=== PATIENT | male | born 1950 | race Caucasian/White ===

== ENCOUNTER → 2016-12-24 | Outpatient (CLI) | payer OTHER, MEDICARE ==
[2016-12-24 11:28] LABS: HEMOGLOBIN A1C 8.29 % (4.2-6.0); MEAN BLOOD GLUCOSE (CALC) 190.057 mg/dL
[2016-12-24 11:59] LABS: ASPARTATE AMINO TRANSFERASE 28 IU/L (21-57); BILIRUBIN,TOTAL 1.2 mg/dL (0.3-1.2); BLOOD UREA NITROGEN 30 mg/dL (7-22); CALCIUM 9.1 mg/dL (8.7-10.7); CHLORIDE 100 meq/L (98-112); CREATININE 1.2 mg/dL (0.70-1.50); EST GLOMERULAR FILTRATION > 60 (>60 ml/min/1.73m(2)); GLUCOSE 145 mg/dL (78-110); POTASSIUM 4.2 meq/L (3.8-5.2); SODIUM 135 meq/L (135-145)
== END ==
LOC: LAB 10:58
PROVIDERS: ATTEND Family Medicine
DX: E11.9 Type 2 diabetes mellitus without complications (principal)
CPT/HCPCS: 36415; 80053; 83036

== ENCOUNTER 2018-05-08 21:40 | Observation (INO) ==
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
[2018-05-08] MEDS ORDERED: KETOROLAC 15 MG/1 ML VIAL IVP ONE ×2 (22:08→22:13)
[2018-05-08] MEDS ORDERED: HYDROmorphone 2 MG/1 ML IVP ONE ×2 (22:08→22:13)
[2018-05-08] MEDS ORDERED: Sodium Chloride 0.9% 1,000 ML PRIMARY IV ONE ×2 (22:08→22:13)
[2018-05-08] MEDS ORDERED: LORazepam 2 MG/1 ML VIAL IVP ONE (22:13)
[2018-05-08 22:27] LABS: BASOPHILS # (AUTO) 0.05 10*3/UL; BASOPHILS % (AUTO) 0.8 % (0-1); EOSINOPHILS # (AUTO) 0.18 10*3/UL; Hemoglobin [HGB] 15.7 g/dL (14.0-18.0); LYMPHOCYTES # (AUTO) 1.83 10*3/uL; MEAN CORPUSCULAR HEMOGLOBIN 28.2 PG (27-31); MEAN CORPUSCULAR HGB CONC 33.4 g/dL (33-37); MEAN CORPUSCULAR VOLUME 84.5 FL (80-90); MEAN PLATELET VOLUME 10.6 FL (7.4-12.2); MONOCYTES # (AUTO) 0.61 10*3/UL (0.3-0.8); MONOCYTES % (AUTO) 10.3 % (5-15); NEUTROPHILS # (AUTO) 3.24 10*3/UL; NEUTROPHILS % (AUTO) 54.9 % (50-80); RED BLOOD COUNT 5.56 10^6/uL (4.70-6.10)
[2018-05-08 22:29] LABS: PLATELET MORPHOLOGY COMMENT NORMAL MORPHOLOGY (NORM); RBC MORPHOLOGY COMMENT NORMAL MORPHOLOGY (NORM); WBC MORPHOLOGY COMMENT NORMAL MORPHOLOGY (NORM)
[2018-05-08 22:38] LABS: BUN/CREATININE RATIO 22.14 (6-20); SERUM ALBUMIN 4.4 g/dL (3.5-4.8)
[2018-05-08] MEDS ORDERED: Glucagon Inj Vial 1 MG/ML VIAL IM PRN (23:44)
[2018-05-08] MEDS ORDERED: DEXTROSE 50%-WATER SYRINGE 50 ML SYRINGE IVP PRN (23:44)
[2018-05-08] MEDS ORDERED: HYDROmorphone 2 MG/1 ML IVP PRN (23:44)
[2018-05-08] MEDS ORDERED: Ondansetron ODT Tab 4 MG TAB PO PRN (23:44)
[2018-05-08] MEDS ORDERED: ONDANSETRON 4 MG/2 ML VIAL IVP PRN (23:44)
[2018-05-08] MEDS ORDERED: LIDOCAINE W/ SODIUM BICARB 0.5 ML SYR SUBD PRN (23:44)
[2018-05-08] MEDS ORDERED: Insulin Sliding Scale Protocol SUBCUT PRN (23:44)
[2018-05-08] MEDS ORDERED: ACETAMINOPHEN 325 MG TABLET PO PRN (23:44)
[2018-05-08] MEDS ORDERED: DEXTROSE 31 GM GEL PO PRN (23:44)
[2018-05-08] MEDS ORDERED: CALCIUM CARBONATE 500 MG (TUMS) CHEWABLE TABLET PO PRN (23:44)
[2018-05-08] MEDS ORDERED: DOCUSATE 100 MG CAPSULE PO PRN (23:44)
[2018-05-09] MEDS: ASPIRIN 81 MG (BABY) CHEWABLE TABLET PO SCH ×2 (00:10→09:34)
[2018-05-09] MEDS: BENAZEPRIL 10 MG TABLET PO SCH ×2 (00:10→09:34)
[2018-05-09] MEDS: CHOLECALCIFEROL 1000 IU TABLET PO SCH ×2 (00:11→09:35)
[2018-05-09] MEDS: HYDROCHLOROTHIAZIDE 25 MG TABLET PO SCH ×2 (00:12→09:34)
[2018-05-09] MEDS: Sodium Chloride 0.9% 1,000 ML PRIMARY IV SCH ×2 (00:19→11:19)
[2018-05-09] MEDS ORDERED: Prochlorperazine Edisylate Inj 10mg/2ml vial IVP PRN (02:38)
[2018-05-09 05:28] LABS: BASOPHILS # (AUTO) 0.02 10*3/UL; BASOPHILS % (AUTO) 0.3 % (0-1); EOSINOPHILS # (AUTO) 0.04 10*3/UL; EOSINOPHILS % (AUTO) 0.7 % (0-8); Hematocrit [HCT] 43.5 % (42.0-52.0); Hemoglobin [HGB] 14.4 g/dL (14.0-18.0); LYMPHOCYTES # (AUTO) 0.74 10*3/uL; MEAN CORPUSCULAR HEMOGLOBIN 28.3 PG (27-31); MEAN CORPUSCULAR HGB CONC 33.1 g/dL (33-37); MEAN CORPUSCULAR VOLUME 85.5 FL (80-90); MONOCYTES % (AUTO) 3.4 % (5-15); NEUTROPHILS # (AUTO) 4.94 10*3/UL; RED BLOOD COUNT 5.09 10^6/uL (4.70-6.10)
[2018-05-09 05:52] LABS: BLOOD UREA NITROGEN 32 mg/dL (7-22); BUN/CREATININE RATIO 26.66 (6-20); SERUM ALBUMIN 3.7 g/dL (3.5-4.8)
[2018-05-09 06:19] LABS: PLATELET MORPHOLOGY COMMENT NORMAL MORPHOLOGY (NORM); RBC MORPHOLOGY COMMENT NORMAL MORPHOLOGY (NORM); WBC MORPHOLOGY COMMENT NORMAL MORPHOLOGY (NORM)
[2018-05-09 06:55] VITALS: RESP 17
[2018-05-09] MEDS ORDERED: metFORMIN 500 MG TABLET PO SCH (07:00)
[2018-05-09] MEDS ORDERED: OMEPRAZOLE 20 MG CAPSULE PO SCH (07:00)
[2018-05-09] MEDS: Insulin Lispro Flexpen 300 UNIT/3 ML INSULN.PEN SUBCUT SCH ×2 (07:13→11:37)
--- NOTE | 2018-05-09 07:49 | PDOC ---
HPI - History of Present Illness Date of Service: 05/09/18 Time of Service: 07:30 Chief Complaint: Worsening lower back pain History of Present Illness: This is a 67 years old male with medical history significant for history of hypertension, diabetes and hyperlipidemia who presented to the hospital last night because of worsening pain in the back in addition to rubbery feeling in his legs. Patient said that he had history of pain in his back that happened after a fall back in October and he is been seeing by his primary and neurosurgery in [place]. Yesterday he went to the neurosurgery office and had 2 injections in his back and they were local anesthetic to see the effect of the medication before planning more intervention. He Said he was discharged and started to have trouble with walking, and feeling of the legs being rubbery which he couldn 't describe more, in addition he had worsening back pain and he went back to the office of the neurosurgeon Dr. Kwong he was given Dilaudid and Toradol apparently felt better and discharged home. He continued to have pain and decided to come to the ER. Last night he said he did have headache now it is mostly gone there is no fever and no chills. No nausea prior to the pain medication that was giving in the ER. Was given pain medication and was admitted. He is somewhat better the headache is nearly gone, the pain in the back still there may be 5 out of 10. He is Still somewhat unsteady according to him but he is also complaining from nausea. There is no numbness or loss of control of bowel or bladder. Past Medical History Medical History: 1. Hypertension. 2. Hyperlipidemia. 3. Diabetes. 4. History of arthritis. 5. History of back pain after a fall back in October Surgical History: 1. History of cervical spine fusion before. 2. History of total right shoulder replacement. 3. History of tonsillectomy Family History: Reviewed an Not Pertinent Past Social History: Does not smoke, does not drink and no drugs. Lives with his outside of [place]. Tobacco Use: Never Smoker In the Past 12 Months, Have Used or Abuse Any of the Following Substance: None Alcohol Use: None Medication / Allergies Home Medications: Home Medications 3 Medication Instructions Recorded Confirmed Type Aspirin [Baby Aspirin] 81 mg ORAL QD tab 05/07/11 05/08/18 History Cholecalciferol [Vitamin D] 1,000 unit PO QD #90 cap 02/21/13 05/08/18 History Blood Sugar Diagnostic [Freestyle 1 ea MC BID and PRN #1 box 05/23/13 05/08/18 History Insulinx Test Strips] Multivitamin [Multi-Vitamin Daily] 1 ea PO QD tab 05/28/16 05/08/18 History RX: Metformin HCl 2 tab PO BID #180 tab 03/24/17 05/08/18 Rx benazepril 40 mg tablet 40 mg ORAL QD #90 tab 09/09/17 05/08/18 Rx hydrochlorothiazide 25 mg tablet 25 mg ORAL QD #90 tab 09/26/17 05/08/18 Rx Linagliptin [Tradjenta] 5 mg PO DAILY 11/04/17 05/08/18 History RX: Empagliflozin [Jardiance] 10 mg PO QD #30 tab 11/16/17 05/08/18 Rx RX: Omeprazole 20 mg PO DAILY 01/17/18 05/08/18 History pravastatin 80 mg tablet 80 mg PO DAILY #90 tab 02/10/18 05/08/18 Rx diclofenac 1 % topical gel 4 g TOPICAL QID #100 g 04/03/18 05/08/18 Rx Allergies/Adverse Reactions: Allergies 3 Allergy/AdvReac Type Severity Reaction Status Date / Time Penicillins Allergy Intermediate HIVES Verified 05/08/18 21:49 saxagliptin HCl AdvReac Mild Nauseated Verified 05/08/18 21:49 [From Onglyza] Review of Systems - Review of Systems All Systems: Reviewed & No Additional Complaints Except as Stated Exam - Vitals Vital Signs: Vital Signs Temperature 97.6 F Temperature Source Temporal Artery Scan Pulse Rate [Pulse Oximeter] 88 Pulse Rate 64 Respiratory Rate 17 Blood Pressure [Left Arm] 130/69 Blood Pressure 140/83 Pulse Ox 97 Oxygen Flow Rate 2 Oxygen Delivery Method Nasal Cannula Height 5 ft 11 in Weight 205 lb - General General Appearance: No Acute Distress, Cooperative, Obese - Head Head Exam: Normal Inspection, Atraumatic - Eye Eye Exam: POSITIVE: Normal Appearance - ENT ENT Exam: POSITIVE: Normal Exam - Neck Neck Exam: Normal Inspection - Respiratory Respiratory Exam: POSITIVE: Clear to Auscultation - Bilaterally - Cardiovascular Cardiovascular Exam: POSITIVE: RRR - GI/Abdominal GI/Abdominal Exam: POSITIVE: Normal Bowel Sounds, Non Tender, Non Distended, Soft, No Organomegaly - Rectal Rectal Exam: POSITIVE: Deferred - External Exam: POSITIVE: Deferred Exam: POSITIVE: Deferred - Extremities Extremities Exam: POSITIVE: Normal Inspection - Back Back Exam: POSITIVE: Normal Inspection Additional Back Exam Details: 2 Band-Aids on the sides of the spine noted. There is no redness there is minimal tenderness on the left paraspinal area. - Neurological Neurological Exam: POSITIVE: Alert, Oriented x 3, Reflexes Normal, CN II-XII Intact, No Facial Droop, Speech Intact / Clear Additional Neurological Exam Details: On his neurological exam there is slight weakness on raising the leg left leg compared to the right one. He said though his left leg always been weaker. Reflexes are symmetrical. Sensation seems to be intact. Babinski is negative. Pulses adequate on both side and symmetrical. - Psychiatric Psychiatric Exam: POSITIVE: Normal Affect - Integumentary Integumentary Exam: POSITIVE: Normal Color Results - Labs CBC and BMP: 05/09/18 04:16 05/09/18 04:16 Assessment and Plan - Patient Problems (1) Low back pain Current Visit: Yes Status: Acute Comment: There is worsening of his back pain after the injection. I did speak with Dr. Kwong, will do an MRI of his back and will send the MRI to [place] for him to review it. I think will write for oral pain medication and will ask PT also to work with him. Code(s): M54.5 - Low back pain (2) Dyslipidemia Current Visit: No Status: Acute Onset Date: 12/07/12 Comment: Continue previous medications Code(s): E78.5 - Hyperlipidemia, unspecified (3) Benign hypertension Current Visit: No Status: None Comment: Same medications (4) DM2 (diabetes mellitus, type 2) Current Visit: No Status: Acute Onset Date: 05/11/11 Comment: Continue home Medication continue sliding scale. Code(s): E11.9 - Type 2 diabetes mellitus without complications Qualifiers: Diabetes mellitus terminal superintendent insulin use: without terminal superintendent use Diabetes mellitus complication status: without complication Qualified Code(s): E11.9 - Type 2 diabetes mellitus without complications
[2018-05-09] MEDS ORDERED: oxyCODONE-ACETAMINOPHEN 5-325 TAB PO PRN (07:50)
[2018-05-09] MEDS ORDERED: Naproxen Tab 500 MG TAB PO PRN (07:51)
[2018-05-09] MEDS ORDERED: Pravastatin 80mg Tab PO SCH (09:00)
[2018-05-09] MEDS ORDERED: LINAGLIPTIN 5 MG PO SCH (09:00)
[2018-05-09] MEDS ORDERED: EMPAGLIFLOZIN 10 MG PO SCH (09:00)
[2018-05-09] MEDS: DICLOFENAC SODIUM 4 GM TOPICAL SCH ×2 (10:40→13:32)
[2018-05-09 11:05] VITALS: O2SAT 94
[2018-05-09 11:06] VITALS: BP 126/70; TEMP 97.1
--- NOTE | 2018-05-09 16:05 | PTI REPORT ---
Thank you for the referral of Jakob Sharif. He was seen on 05/09/18 for an inpatient evaluation secondary to back pain. SUBJECTIVE: The patient is a 67-year-old male. The patient initially denied treatment; however, he agreed to a therapy evaluation. The patient states he had a diagnostic injection yesterday in [place] for his back pain that has been persistent since he fell in October. An MRI was done after his fall and showed two bulging discs. The patient was hoping to have surgery; however, his physician suggested for him to go to an business analytics specialist in [facility]. The patient went yesterday, 05/08/2018 to have injections. The patient states that there was a sharp pain all the way down his bilateral legs that he felt into his toes and the pain was greater on the left vs. the right. The patient complains of diminished sensation on the left and inability to ambulate correctly due to weakness. The patient was independent with all transfers, ambulation, and stairs prior to injection. The patient's pain has increased after injections in his lower back. The patient states he has three stairs into his home with no railing. His bedroom is on the first floor. Prior to yesterday the patient did not use an assistive device. The patient lives with in [place] and his daughter lives near. PAST MEDICAL HISTORY: Past medical history can be found in the patient's medical record. OBJECTIVE FINDINGS: General observations: The patient was alert and oriented. Transfers: The patient transferred from sit to stand with min assist x1. Strength: The patient demonstrated strength of 3/5 in right lower extremity. The patient demonstrated strength of 2/5 in the left lower extremity. Ambulation: Gait pattern showed limited hip flexion and knee flexion during swing phase. The patient ambulated 20 steps with min assist x1. ASSESSMENT: Problem List: Decreased strength Decreased endurance Short-Term Goals: To be met by discharge from inpatient: Patient will demonstrate strength required for functional activity including transfers, ambulation, and stairs. Patient will demonstrate safe and independent transfers, ambulation, and stairs with front wheeled walker. Long-Term Goals: To be met following discharge from inpatient: Patient will be seen by outpatient physical therapy. TREATMENT PLAN: Patient will be seen B.I.D during the week and one time per day over the weekend as an inpatient for strength training, neuromuscular rehabilitation, and gait training. INITIAL TREATMENT: Treatment today consisted of the initial evaluation followed by no treatment due to the patient's refusal. The patient was left in chair with bed alarm on and call light within reach. Dictated by: CHICO Tobin Supervised by: JEFF Yip
--- NOTE | 2018-05-09 17:08 | DCSUMMARY ---
Hospitalization Summary Admit Date: 05/08/2018 Discharge Date: 05/09/18 Hospital Course: Discharge diagnoses 1. Worsening back pain after epidural improved 2. Hypertension 3. Hyperlipidemia 4. History of back pain since a fall back in October last year 5. History of arthritis Hospital course This is a 67 years old male with medical history significant for history of hypertension, diabetes and hyperlipidemia who presented to the hospital last night because of worsening pain in the back in addition to rubbery feeling in his legs. Patient said that he had history of pain in his back that happened after a fall back in October and he's been seen by his primary and neurosurgeon in [place]. The day before admission he went to the neurosurgery office and had 2 injections in his back they were local anesthetic to see the effect of the medication before planning more intervention. He said he was discharged home and then he started to have trouble walking, feeling of legs being rubbery which he couldn't describe more than that. In addition he had worsening back pain so he went back to the office of the neurosurgeon he was giving Dilaudid and Toradol apparently felt better and was discharged home. He continued to have pain so he came to the ER. The night of admission he did report headache but there was no fever nor chills. He did not have nausea prior to pain medication but did have some nausea after he was given pain medication in the ER. I saw him the next day his headache is mostly gone the pain in the back still there was rated at 5 out of 10. He did have some unsteadiness initially. His exam was remarkable for some weakness in his left leg more in the flexor of the hip but he said that's old. Did discuss it with the neurosurgeon and we decided to do an MRI. However the MRI machine broke and its not clear when they be able to fix it. I rechecked on the patient again apparently he was getting up and going to the bathroom on his own he did walk in front of me and did okay, he did not need help or a walker. He said his pain seems to be controlled the nausea that he had is gone. He feels a lot better he wanted to go home. So we discharge him home did write a prescription for pain medication in case his pain is worse and cannot be controlled with [id number] medication. He'll follow-up with his physician. He'll come tomorrow to have the MRI done. Discharge instruction Diet regular Activity as started Medications Current Medication(s) 3 Medication Instructions Recorded Confirmed Type Aspirin [Baby Aspirin] 81 mg ORAL QD tab 05/07/11 05/08/18 History Cholecalciferol [Vitamin D] 1,000 unit PO QD #90 cap 02/21/13 05/08/18 History Blood Sugar Diagnostic [Freestyle 1 ea MC BID and PRN #1 box 05/23/13 05/08/18 History Insulinx Test Strips] Multivitamin [Multi-Vitamin Daily] 1 ea PO QD tab 05/28/16 05/08/18 History Metformin HCl 2 tab PO BID #180 tab 03/24/17 05/08/18 Rx benazepril 40 mg tablet 40 mg ORAL QD #90 tab 09/09/17 05/08/18 Rx hydrochlorothiazide 25 mg tablet 25 mg ORAL QD #90 tab 09/26/17 05/08/18 Rx Linagliptin [Tradjenta] 5 mg PO DAILY 11/04/17 05/08/18 History Empagliflozin [Jardiance] 10 mg PO QD #30 tab 11/16/17 05/08/18 Rx Omeprazole 20 mg PO DAILY 01/17/18 05/08/18 History pravastatin 80 mg tablet 80 mg PO DAILY #90 tab 02/10/18 05/08/18 Rx diclofenac 1 % topical gel 4 g TOPICAL QID #100 g 04/03/18 05/08/18 Rx Naproxen [Naprosyn] 500 mg PO BID PRN tab 05/09/18 Rx Ondansetron Odt [Zofran ODT] 4 mg PO TID PRN #15 tab.rapdis 05/09/18 Rx oxyCODONE/APAP 5/325 Tab 1 - 2 tab PO QID PRN #15 tab 05/09/18 Rx [Percocet 5/325 Tab] Follow-up with his PCP and with the neurosurgeon as scheduled Condition at discharge was stable for discharge Exam - Vitals Vital Signs: Vital Signs Temperature 97.1 F Temperature Source Temporal Artery Scan Pulse Rate [Pulse Oximeter] 74 Pulse Rate 64 Respiratory Rate 17 Blood Pressure [Left Arm] 126/70 Blood Pressure 140/83 Pulse Ox 94 Oxygen Flow Rate 2 Oxygen Delivery Method Room Air Height 5 ft 11 in Weight 205 lb Patient Problems - Patient Problem List (1) Low back pain Status: Acute Code(s): M54.5 - Low back pain Category: Medical (2) Dyslipidemia Status: Acute Onset Date: 12/07/12 Code(s): E78.5 - Hyperlipidemia, unspecified Category: Medical (3) Benign hypertension Status: None Category: Medical (4) DM2 (diabetes mellitus, type 2) Status: Acute Onset Date: 05/11/11 Code(s): E11.9 - Type 2 diabetes mellitus without complications Qualifiers: Diabetes mellitus chcf insulin use: without coverage specialist use Diabetes mellitus complication status: without complication Qualified Code(s): E11.9 - Type 2 diabetes mellitus without complications Category: Medical
== END 2018-05-09 15:20 | disposition home or self-care (01) ==
LOC: ER 21:40 → MED/SURG 21:40
PROVIDERS: ADMIT Internal Medicine; ATTEND Internal Medicine